=== PATIENT | male | born 1990 | race African-American/Black ===

== ENCOUNTER 2020-05-07 07:13 | Inpatient (IN) | payer OTHER ==
[~2020-05-07] VITALS: Ht 177.8 cm; Wt 65.7 kg
[2020-05-07 07:35] VITALS: BP 128/75
--- NOTE | 2020-05-07 07:35 | NUR ---
ED Nurse Note: Pt walked into ED from home complaining of lower abdominal pain n/v since yesterday 11pm. Pt states he vomited at least 10 times emesis clear in color, pt states having chills, denies fever. Pt is alert oriented x4, breathing even and unlabored.
--- NOTE | 2020-05-07 07:42 | Emergency Room Report ---
History of Present Illness General Chief Complaint: Abdominal Pain Source: Patient Present Illness HPI Patient is a 29-year-old male presents after increased abdominal pain. Reports having diffuse lower abdominal pain associate with nausea and vomiting. Denies any diarrhea. Had recently traveled from [place]. Denies any fever. Reports having some chills. Reported having elevated blood sugar last night. Denies any definite known coronavirus exposure. Had not been having any Allergies: Coded Allergies: No Known Allergies (Unverified , 05/07/20) COVID-19 Screening Contact w/high risk pt: No Experienced COVID-19 symptoms?: No COVID-19 Testing performed DIRECT CARE STAFFER: No Patient History Reviewed Nursing Documentation: PMH: Agreed; PSxH: Agreed Nursing Documentation-PMH Past Medical History: No History, Except For Hx Diabetes: Yes - TYPE 1 Physical Exam Vital Signs Date Time Temp Pulse Resp B/P (MAP) Pulse Ox O2 Delivery O2 Flow Rate FiO2 05/07/20 07:29 98.1 100 16 124/79 (94) 98 Room Air Sp02 EP Interpretation: reviewed, normal General Appearance: normal inspection, well appearing, no apparent distress, alert, GCS 15, non-toxic Head: atraumatic ENT: normal ENT inspection, hearing grossly normal, normal voice Neck: normal inspection, full range of motion, supple, no bony tend Respiratory: normal inspection, lungs clear, normal breath sounds, no respiratory distress, no retraction, no wheezing Cardiovascular #1: regular rate, rhythm, no edema Gastrointestinal: normal inspection, normal bowel sounds, non tender, soft, no guarding, no hernia Genitourinary: no CVA tenderness Musculoskeletal: normal inspection, back normal, normal range of motion Neurologic: alert, motor strength/tone normal, commercial estimator III-XII nml as tested, oriented x3, responsive, speech normal, normal inspection Psychiatric: normal inspection, judgement/insight normal, mood/affect normal Procedures Critical Care Time Critical Care Time Patient had a critical medical condition which untreated could potentially result in life or limb threatening injury. Total critical care time excluding procedures approximately 45 minutes. Medical Decision Making Diagnostic Impression: Primary Impression: Diabetic acidosis, type I Additional Impressions: Dehydration Acute prerenal azotemia ER Course Patient presented for abdominal pain and vomiting. Differential diagnosis include was not limited to diabetic ketoacidosis, coronavirus infection, appendicitis, gastroenteritis, marijuana hyperemesis among others. Because of complexity of patient's case laboratory tests and imaging studies were ordered. Patient was noted to have multiple episodes of emesis as well as elevated blood sugar. Patient reports being compliant with his insulin although he did reportedly delay a dose yesterday. He had recently traveled from [place] and does not have any definite coronavirus exposure. Coronavirus testing was negative. Patient started on IV fluids as well as IV insulin and insulin drip. Laboratory testing showed elevated anion gap as well as urine ketones consistent with diabetic ketoacidosis. Patient's bicarb was noted to be normal. Patient given antiemetics. He was started on IV antibiotics due to elevated white blood count with some slight urinary infection. There is no definite source for infection noted. CT of the abdomen pelvis was ordered noncontrast due to patient's elevated BUN/creatinine. CT imaging showed questionable gastritis otherwise negative see radiology report for full details. Dr. Que Sena was contacted for inpatient management due to [facility] physician for [facility]. Labs Test 05/07/20 07:45 05/07/20 08:00 05/07/20 09:19 White Blood Count 22.5 K/UL (4.8-10.8) Red Blood Count 5.98 M/UL (4.70-6.10) Hemoglobin 17.7 G/DL (14.2-18.0) Hematocrit 51.7 % (42.0-52.0) Mean Corpuscular Volume 86 FL (80-99) Mean Corpuscular Hemoglobin 29.6 PG (27.0-31.0) Mean Corpuscular Hemoglobin Concent 34.2 G/DL (32.0-36.0) Red Cell Distribution Width 11.9 % (11.6-14.8) Platelet Count 370 K/UL (150-450) Mean Platelet Volume 7.0 FL (6.5-10.1) Neutrophils (%) (Auto) % (45.0-75.0) Lymphocytes (%) (Auto) % (20.0-45.0) Monocytes (%) (Auto) % (1.0-10.0) Eosinophils (%) (Auto) % (0.0-3.0) Basophils (%) (Auto) % (0.0-2.0) Differential Total Cells Counted 100 Neutrophils % (Manual) 88 % (45-75) Lymphocytes % (Manual) 9 % (20-45) Monocytes % (Manual) 3 % (1-10) Eosinophils % (Manual) 0 % (0-3) Basophils % (Manual) 0 % (0-2) Band Neutrophils 0 % (0-8) Platelet Estimate Adequate Platelet Morphology Normal Red Blood Cell Morphology Normal Urine Color Yellow Urine Appearance Clear Urine pH 5 (4.5-8.0) Urine Specific [place] 1.020 (1.005-1.035) Urine Protein 1+ (NEGATIVE) Urine Glucose (UA) 4+ (NEGATIVE) Urine Ketones 3+ (NEGATIVE) Urine Blood Negative (NEGATIVE) Urine Nitrite Negative (NEGATIVE) Urine Bilirubin 1+ (NEGATIVE) Urine Ictotest Negative (NEGATIVE) Urine Urobilinogen Normal MG/DL (0.0-1.0) Urine Leukocyte Esterase 2+ (NEGATIVE) Urine RBC 0 /HPF (0 - 0) Urine WBC 5-10 /HPF (0 - 0) Urine Squamous Epithelial Cells None /LPF (NONE/OCC) Urine Bacteria Few /HPF (NONE) Sodium Level 133 MMOL/L (136-145) Potassium Level 4.6 MMOL/L (3.5-5.1) Chloride Level 91 MMOL/L (98-107) Carbon Dioxide Level 25 MMOL/L (21-32) Anion Gap 18 mmol/L (5-15) Blood Urea Nitrogen 47 mg/dL (7-18) Creatinine 2.4 MG/DL (0.55-1.30) Estimat Glomerular Filtration Rate 39.3 mL/min (>60) Glucose Level 474 MG/DL (74-106) Calcium Level 9.7 MG/DL (8.5-10.1) Total Bilirubin 0.8 MG/DL (0.2-1.0) Aspartate Amino Transf (AST/SGOT) 9 U/L (15-37) Alanine Aminotransferase (ALT/SGPT) 33 U/L (12-78) Alkaline Phosphatase 127 U/L (46-116) Troponin I 0.000 ng/mL (0.000-0.056) Total Protein 9.4 G/DL (6.4-8.2) Albumin 4.7 G/DL (3.4-5.0) Globulin 4.7 g/dL Albumin/Globulin Ratio 1.0 (1.0-2.7) Lipase 50 U/L (73-393) Urine Opiates Screen Negative (NEGATIVE) Urine Barbiturates Screen Negative (NEGATIVE) Phencyclidine (PCP) Screen Negative (NEGATIVE) Urine Amphetamines Screen Negative (NEGATIVE) Urine Benzodiazepines Screen Negative (NEGATIVE) Urine Cocaine Screen Negative (NEGATIVE) Urine Marijuana (THC) Screen Positive (NEGATIVE) Acetone Level Positive-small (NEGATIVE) Magnesium Level 2.1 MG/DL (1.8-2.4) Serum Alcohol < 3 mg/dL POC Whole Blood Glucose 401 MG/DL (74-106) EKG Diagnostic Results Rate: normal Rhythm: NSR ST Segments: other - j point elevation Last Vital Signs Date Time Temp Pulse Resp B/P (MAP) Pulse Ox O2 Delivery O2 Flow Rate FiO2 05/07/20 07:29 98.1 100 16 124/79 (94) 98 Room Air Status: improved Disposition: ADMITTED INPATIENT Condition: Critical Darren Paris MD May 07, 2020 07:42
[2020-05-07] MEDS ORDERED: Morphine Sulfate 2mg/ml Inj(IV/IM USE ONLY) IVP ONE (07:45)
--- NOTE | 2020-05-07 07:45 | NUR ---
ED Nurse Note: urine, blood, and covid swab sent to lab
[2020-05-07] MEDS ORDERED: Insulin Human Regular 100units/ml 3ml IV ONE (08:15)
[2020-05-07 08:20] LABS: APPEARANCE,URINE CLEAR; BILIRUBIN, URINE 1+ (NEGATIVE); GLUCOSE, URINE (UA) 4+ (NEGATIVE); KETONES,URINE 3+ (NEGATIVE); LEUKOCYTE ESTERASE ,URINE 2+ (NEGATIVE); NITRITE,URINE NEGATIVE (NEGATIVE); PH,URINE 5 (4.5-8.0); PROTEIN,URINE 1+ (NEGATIVE); UROBILINOGEN,URINE NORMAL MG/DL (0.0-1.0)
[2020-05-07] MEDS: LR 1000ml 1,000 ML IV SCH ×3 (08:20→17:45)
[2020-05-07 08:21] LABS: HEMATOCRIT 51.7 % (42.0-52.0); HEMOGLOBIN 17.7 G/DL (14.2-18.0); MEAN CORPUSCULAR VOLUME 86 FL (80-99); PLATELET COUNT 370 K/UL (150-450); RED BLOOD COUNT 5.98 M/UL (4.70-6.10); RED CELL DISTRIBUTION WIDTH 11.9 % (11.6-14.8)
[2020-05-07 08:23] LABS: COLOR,URINE YELLOW
[2020-05-07 08:25] LABS: ANION GAP 18 mmol/L (5-15); BLOOD UREA NITROGEN 47 mg/dL (7-18); CALCIUM 9.7 MG/DL (8.5-10.1); CARBON DIOXIDE 25 MMOL/L (21-32); CHLORIDE 91 MMOL/L (98-107); CREATININE 2.4 MG/DL (0.55-1.30); POTASSIUM 4.6 MMOL/L (3.5-5.1); SODIUM 133 MMOL/L (136-145)
[2020-05-07 08:29] LABS: WHITE BLOOD COUNT 22.5 K/UL (4.8-10.8)
[2020-05-07 08:30] LABS: ALANINE AMINOTRANSFERASE 33 U/L (12-78); ALBUMIN 4.7 G/DL (3.4-5.0); ALKALINE PHOSPHATASE 127 U/L (46-116); ASPARTATE AMINO TRANSFERASE 9 U/L (15-37); BILIRUBIN,TOTAL 0.8 MG/DL (0.2-1.0)
[2020-05-07] MEDS ORDERED: Insulin Reg 100 units Premix 100 ML IV SCH (08:30)
--- NOTE | 2020-05-07 08:41 | NUR ---
ED Nurse Note: insulin drip started
--- NOTE | 2020-05-07 08:57 | NUR ---
ED Nurse Note: Pt went down to CT via gurney accompanied by CT staff. Pt in stable condition.
--- NOTE | 2020-05-07 09:11 | NUR ---
ED Nurse Note: pt back from CT in stable condition.
[2020-05-07 09:30] VITALS: BP 121/73
[2020-05-07] MEDS ORDERED: cefTRIAXone 1 GM in NS 55 ML IVPB ONE (09:30)
--- NOTE | 2020-05-07 09:30 | NUR ---
HAND-OFF: Report given to ELDA Thomas. Endorsed plan of care.
--- NOTE | 2020-05-07 09:41 | Diagnostic Imaging Report ---
Indication: Diffuse lower abdominal pain associated with nausea and vomiting Technique: Spiral acquisitions obtained through the abdomen and pelvis. No oral contrast utilized, per emergency room physician request No IV contrast utilized, per referring physician request. Multiplanar reconstructions were generated. Total dose length product 166 mGycm. CTDIvol(s) 3 mGy. Dose reduction achieved using automated exposure control Comparison: None Findings: Lack of enteric contrast limits assessment of the GI tract. Normal appendix. No evidence of diverticulosis or diverticulitis. Equivocal slight prominence of the gastric rugal folds noted. The distal esophagus and duodenum are unremarkable. No small bowel distention. No free or loculated intraperitoneal gas or fluid is evident. Lack of IV contrast limits assessment of the solid organs. The liver, gallbladder, bile ducts, pancreas, spleen, adrenals, kidneys are all unremarkable. No pelvic mass or adenopathy. No retroperitoneal or mesenteric mass or adenopathy. The included lung bases are clear. The bones are unremarkable. Impression: Limited assessment of the GI tract, due to lack of enteric contrast administration Questionable gastric rugal fold prominence; if real, could indicate mild gastritis Otherwise negative The CT scanner at [facility] is accredited by the [employer] and the scans are performed using protocols designed to limit radiation exposure to as low as reasonably achievable to attain images of sufficient resolution adequate for diagnostic evaluation.
--- NOTE | 2020-05-07 09:57 | NUR ---
ED Nurse Note: pt on insulin drip that in the [place] is not titratable. Asked ED MD, who said to leave it at 6 u/hr, check BS every hour and to let him know the results. Per ED MD, we can titrate down based on the BS.
--- NOTE | 2020-05-07 10:10 | NUR ---
ED Nurse Note: Fingerstick BS 290. ED MD aware. Per MD, decreased insulin to 4 u/hr. Order noted and carried out. Pt is sleeping comforatbly in bed with no signs of distress. Vitals stablea as documented.
--- NOTE | 2020-05-07 10:15 | Diagnostic Imaging Report ---
Indication: Cough Technique: One view of the chest Comparison: none Findings: Lungs and pleural spaces are clear. Heart size is normal. Impression: No acute process
--- NOTE | 2020-05-07 10:43 | NUR ---
ED Nurse Note: Dr. Sena @ bedside
--- NOTE | 2020-05-07 10:46 | NUR ---
ED Nurse Note: per ED MD, stop insulin infusion now. Pt to be downgraded to SDU
[2020-05-07 11:26] VITALS: BP 110/53
--- NOTE | 2020-05-07 11:29 | NUR ---
ED Nurse Note: valentino figueroa sr. (father) [phone]. please inform father on room assignment
[2020-05-07 13:10] VITALS: BP 116/65
--- NOTE | 2020-05-07 14:30 | NUR ---
ED Nurse Note: Patient texting on bed with no distress. Calm and cooperative. Respirations are even and non labored.
[2020-05-07 15:11] VITALS: BP 123/81
--- NOTE | 2020-05-07 15:23 | NUR ---
ED Nurse Note: Report given to Keisha SCHROEDER of med surg unit.
--- NOTE | 2020-05-07 15:36 | NUR ---
ED Nurse Note: Pt transferred to med surg unit with all his belongings. Pt stable for transport.
--- NOTE | 2020-05-07 16:00 | NUR ---
NURSE NOTES: Patient is in bed awake and able to verbalize needs. Stable. Patient denies pain or SOB at this time. Patient oriented to room, call light, and unit. Patient instructed to use call light for assistance, verbalized understanding. Patient's skin is c/d/i. Patient denies nausea or vomiting. Patient is in bed in locked and lowest position with call light within reach. All safety measures provided, all needs met at this time. Will continue to monitor.
[2020-05-07] MEDS ORDERED: HUMALOG 75/255 UNIT1 SUBQ (16:04)
[2020-05-07] MEDS ORDERED: TOUJEO SOL300 UNIT/1 SQ (16:04)
[2020-05-07] MEDS ORDERED: Insulin Human Regular 100units/ml 3ml SUBQ SCH (16:30)
[2020-05-07] MEDS: NovoLOG Insulin Flexpen SUBQ SCH (17:13)
--- NOTE | 2020-05-07 19:30 | NUR ---
NURSE HAND-OFF: Important Events on Shift: blood sugar check, hydration Patient Status: stable Diet: ccho med Pending Orders: n/a Pending Results/Labs: bmp, mag, phos Pending MD notification:n/a Latest Vital Signs: Temperature 97.9 , Pulse 85 , B/P 119 /75 , Respiratory Rate 16 , O2 SAT 99 , Room Air, O2 Flow Rate . Vital Sign Comment: n/a Latest Bro Fall Score: 35 Fall Risk: Medium Risk Safety Measures: Call light Within Reach,Side Rails x2, Bed position Low and Locked. Fall Precautions: Report given to Houston SCHROEDER.
[2020-05-07 19:35] LABS: ANION GAP 9 mmol/L (5-15); BLOOD UREA NITROGEN 34 mg/dL (7-18); CALCIUM 8.9 MG/DL (8.5-10.1); CARBON DIOXIDE 27 MMOL/L (21-32); CHLORIDE 99 MMOL/L (98-107); CREATININE 1.6 MG/DL (0.55-1.30); SODIUM 135 MMOL/L (136-145)
[2020-05-07 19:38] LABS: PHOSPHORUS 1.9 MG/DL (2.5-4.9)
--- NOTE | 2020-05-07 19:45 | Consultation ---
DATE OF CONSULTATION: 05/07/2020 ENDOCRINOLOGY CONSULTATION REFERRING PHYSICIAN: Que Sena M.D. REASON FOR CONSULTATION: Diabetes management, DKA. HISTORY OF PRESENT ILLNESS: The patient is a 29-year-old male with history of type 1 diabetes diagnosed in 2008. He has not been to his doctor for many months because of the COVID. His last A1c was around 10. He is taking Lantus insulin 41 units at night, Humalog 6 units before each meal, plus additional sliding scale. The patient presented to the hospital with DKA nausea, vomiting, abdominal pain. On presentation, he had a WBC of 22, hemoglobin 17, hematocrit 51, platelets of 370. Sodium was 133 on presentation with a potassium of 4.6, chloride 91, bicarb 25, BUN 47, and creatinine of 2.4. Glucose is 474. Lipase was normal. The patient was started on IV fluid and insulin and admitted to the floor for observation. He is currently feeling better. He is able to tolerate his dinner. PAST MEDICAL HISTORY: Type 1 diabetes as above. PAST SURGICAL HISTORY: None. FAMILY HISTORY: Noncontributory. SOCIAL HISTORY: No smoking, alcohol, or drug use. REVIEW OF SYSTEMS: As per HPI. LABORATORY DATA: Labs discussed in the history of present illness. PHYSICAL EXAMINATION: GENERAL: He is awake and alert. VITAL SIGNS: Blood pressure is 119/74, pulse of 85, temperature of 97.9. HEENT: Pupils equal and reactive to light. Sclerae anicteric. NECK: No JVD. No thyromegaly. No bruit. LUNGS: Clear. HEART: Regular rate and rhythm. ABDOMEN: Positive bowel sounds. Soft. EXTREMITIES: No clubbing, cyanosis, or edema. DIAGNOSES: 1. DKA. 2. Type 1 diabetes. PLAN: 1. Levemir 42 units at bedtime. 2. NovoLog 8 units before each meal. 3. NovoLog sliding scale before meals and at bedtime. 4. Repeat stat lab, BMP, mag, and phos and call me with the result. Morning labs will also be assessed. I will follow the patient during hospital stay. Hopefully, he will be able to go home in the next day or two. Thank you, Dr. Sena, for the courtesy of this consultation. Xavier Tapia M.D. DR: MALI JOB#: [id number] CC:
[2020-05-07 20:00] VITALS: BP 127/72
[2020-05-07] MEDS: Heparin 5000 units/ml inj SUBQ SCH (20:12)
--- NOTE | 2020-05-07 20:58 | NUR ---
NURSE NOTES: Left message for Dr Tapia regarding patient's ordered STAT labs. Addendum: 05/08/20 at 0732 by Houston Hollins RN Spoke with Dr aTpia via telephone, no new orders
[2020-05-07] MEDS ORDERED: Levemir Flexpen SUBQ SCH (21:00)
--- NOTE | 2020-05-07 21:29 | History and Physical Report ---
DATE OF ADMISSION: 05/07/2020 HISTORY OF PRESENT ILLNESS: This is a 29-year-old insulin-dependent diabetic who came to the hospital with abdominal pain. He was seen and worked up, been found to have mild DKA. His bicarb was 25 and his initial glucose was 474. He had marked leukocytosis as well. The patient has received fluids and hydration. He has evidence of renal failure with a creatinine of 2.4 and hyponatremia. His urine positive for marijuana. He has mild leukocytosis as well as few pus cells. The patient reports he takes Lantus and Humalog at home. He takes 41 units of Lantus at night and takes 6 units of short-acting Humalog before each meal. PAST MEDICAL HISTORY: Diabetes mellitus. PAST SURGICAL HISTORY: None. ALLERGIES: None. REVIEW OF SYSTEMS: Denies any headaches, hematemesis, melena, hematochezia, night sweats, or weight loss. PHYSICAL EXAMINATION: GENERAL: Reveals a 29-year-old male. HEENT: Unremarkable. LUNGS: Clear breath sounds bilaterally. ABDOMEN: Soft. EXTREMITIES: There is no edema. NEUROLOGIC: Nonfocal. LABORATORY AND DIAGNOSTIC DATA: Lab testing discussed above. IMPRESSION: 1. Dehydration. 2. Acute kidney injury/ATN. 3. Mild DKA. 4. Hyperglycemia. DISCUSSION: Initiate insulin drip, will likely discontinue upon transfer to the medical floor. We will consult Nephrology and Endocrinology. 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 Check labs in the morning. Que Sena M.D. DR: Ninfa JOB#: [id number] CC:
[2020-05-08] VITALS: BP 122/64
[2020-05-08 05:41] LABS: BASOPHILS % (AUTO) 2.1 % (0.0-2.0); EOSINOPHILS % (AUTO) 0.2 % (0.0-3.0); HEMATOCRIT 42.5 % (42.0-52.0); HEMOGLOBIN 14.5 G/DL (14.2-18.0); LYMPHOCYTES % (AUTO) 17.5 % (20.0-45.0); MEAN CORPUSCULAR VOLUME 86 FL (80-99); MONOCYTES % (AUTO) 6.8 % (1.0-10.0); NEUTROPHILS % (AUTO) 73.4 % (45.0-75.0); PLATELET COUNT 308 K/UL (150-450); RED BLOOD COUNT 4.92 M/UL (4.70-6.10); RED CELL DISTRIBUTION WIDTH 11.6 % (11.6-14.8); WHITE BLOOD COUNT 12.2 K/UL (4.8-10.8)
[2020-05-08 06:01] LABS: ALANINE AMINOTRANSFERASE 29 U/L (12-78); ALBUMIN 3.5 G/DL (3.4-5.0); ALBUMIN/GLOBULIN RATIO 1.2 (1.0-2.7); ALKALINE PHOSPHATASE 79 U/L (46-116); ANION GAP 8 mmol/L (5-15); ASPARTATE AMINO TRANSFERASE 25 U/L (15-37); BILIRUBIN,TOTAL 0.8 MG/DL (0.2-1.0); BLOOD UREA NITROGEN 28 mg/dL (7-18); CALCIUM 8.9 MG/DL (8.5-10.1); CARBON DIOXIDE 30 MMOL/L (21-32); CHLORIDE 102 MMOL/L (98-107); CREATININE 1.3 MG/DL (0.55-1.30); POTASSIUM 3.7 MMOL/L (3.5-5.1); SODIUM 140 MMOL/L (136-145)
[2020-05-08] MEDS: NovoLOG Insulin Flexpen SUBQ SCH ×2 (06:13→11:50)
--- NOTE | 2020-05-08 06:32 | General Progress Note ---
Subjective Allergies: Coded Allergies: No Known Allergies (Unverified , 05/07/20) All Systems: reviewed and negative except above Subjective events noted hypoglycemia this morning DKA resolved Item Value Date Time Bedside Blood Glucose 52 mg/dl L 05/08/20 0613 Bedside Blood Glucose 230 mg/dl H 05/07/20 2114 Bedside Blood Glucose 343 mg/dl H 05/07/20 1713 Bedside Blood Glucose 166 mg/dl H 05/07/20 1352 Bedside Blood Glucose 290 mg/dl H 05/07/20 1010 Objective Last 24 Hour Vital Signs Date Time Temp Pulse Resp B/P (MAP) Pulse Ox O2 Delivery O2 Flow Rate FiO2 05/08/20 00:00 98.3 82 18 122/64 (83) 98 05/07/20 21:56 Room Air 05/07/20 20:00 98.7 85 20 127/72 (90) 98 05/07/20 15:36 97.9 85 16 119/75 99 Room Air 05/07/20 15:27 Room Air 05/07/20 15:11 98.2 76 15 123/81 100 Room Air 05/07/20 13:10 97.5 88 16 116/65 99 Room Air 05/07/20 11:26 97.5 62 17 110/53 100 Room Air 05/07/20 09:30 97.8 65 18 121/73 99 Room Air 05/07/20 08:47 98.1 05/07/20 07:35 88 22 Room Air 05/07/20 07:35 98.1 88 22 128/75 100 Room Air 05/07/20 07:29 98.1 100 16 124/79 (94) 98 Room Air Intake and Output 05/07/20 05/08/20 19:00 07:00 Intake Total 480 ml Balance 480 ml Intake Oral 480 ml # Voids 1 Laboratory Tests 05/07/20 07:45: White Blood Count 22.5*H, Red Blood Count 5.98, Hemoglobin 17.7, Hematocrit 51.7, Mean Corpuscular Volume 86, Mean Corpuscular Hemoglobin 29.6, Mean Corpuscular Hemoglobin Concent 34.2, Red Cell Distribution Width 11.9, Platelet Count 370, Mean Platelet Volume 7.0, Neutrophils (%) (Auto) , Lymphocytes (%) (Auto) , Monocytes (%) (Auto) , Eosinophils (%) (Auto) , Basophils (%) (Auto) , Differential Total Cells Counted 100, Neutrophils % (Manual) 88H, Lymphocytes % (Manual) 9L, Monocytes % (Manual) 3, Eosinophils % (Manual) 0, Basophils % (Manual) 0, Band Neutrophils 0, Platelet Estimate Adequate, Platelet Morphology Normal, Red Blood Cell Morphology Normal, Urine Color Yellow, Urine Appearance Clear, Urine pH 5, Urine Specific [place] 1.020, Urine Protein 1+H, Urine Glucose (UA) 4+H, Urine Ketones 3+H, Urine Blood Negative, Urine Nitrite Negative, Urine Bilirubin 1+H, Urine Ictotest Negative, Urine Urobilinogen Normal, Urine Leukocyte Esterase 2+H, Urine RBC 0, Urine WBC 5-10H, Urine Squamous Epithelial Cells None, Urine Bacteria Few, Sodium Level 133L, Potassium Level 4.6, Chloride Level 91L, Carbon Dioxide Level 25, Anion Gap 18H, Blood Urea Nitrogen 47H, Creatinine 2.4H, Estimat Glomerular Filtration Rate 39.3, Glucose Level 474H, Calcium Level 9.7, Total Bilirubin 0.8, Aspartate Amino Transf (AST/SGOT) 9L, Alanine Aminotransferase (ALT/SGPT) 33, Alkaline Phosphatase 127H, Troponin I 0.000, Total Protein 9.4H, Albumin 4.7, Globulin 4.7, Albumin/Globulin Ratio 1.0, Lipase 50L, Urine Opiates Screen Negative, Urine Barbiturates Screen Negative, Phencyclidine (PCP) Screen Negative, Urine Amphetamines Screen Negative, Urine Benzodiazepines Screen Negative, Urine Cocaine Screen Negative, Urine Marijuana (THC) Screen PositiveH, Acetone Level Positive-small 05/07/20 08:00: Magnesium Level 2.1, Serum Alcohol < 3 05/07/20 09:19: POC Whole Blood Glucose 401H 05/07/20 10:08: POC Whole Blood Glucose 290H 05/07/20 11:12: POC Whole Blood Glucose 172H 05/07/20 12:21: POC Whole Blood Glucose 151H 05/07/20 13:52: POC Whole Blood Glucose 166H 05/07/20 15:10: POC Whole Blood Glucose 201H 05/07/20 16:28: POC Whole Blood Glucose [Pending] 05/07/20 19:10: Sodium Level 135L, Potassium Level 4.0, Chloride Level 99, Carbon Dioxide Level 27, Anion Gap 9, Blood Urea Nitrogen 34H, Creatinine 1.6H, Estimat Glomerular Filtration Rate > 60, Glucose Level 305#H, Calcium Level 8.9, Phosphorus Level 1.9L, Magnesium Level 2.0 05/08/20 04:40: Sodium Level 140, Potassium Level 3.7, Chloride Level 102, Carbon Dioxide Level 30, Anion Gap 8, Blood Urea Nitrogen 28H, Creatinine 1.3, Estimat Glomerular Filtration Rate > 60, Glucose Level 44#L, Calcium Level 8.9, White Blood Count 12.2H, Red Blood Count 4.92, Hemoglobin 14.5, Hematocrit 42.5, Mean Corpuscular Volume 86, Mean Corpuscular Hemoglobin 29.5, Mean Corpuscular Hemoglobin Concent 34.2, Red Cell Distribution Width 11.6, Platelet Count 308, Mean Platelet Volume 6.6, Neutrophils (%) (Auto) 73.4, Lymphocytes (%) (Auto) 17.5L, Monocytes (%) (Auto) 6.8, Eosinophils (%) (Auto) 0.2, Basophils (%) (Auto) 2.1H, Total Bilirubin 0.8, Aspartate Amino Transf (AST/SGOT) 25, Alanine Aminotransferase (ALT/SGPT) 29, Alkaline Phosphatase 79, Total Protein 6.4#, Albumin 3.5, Globulin 2.9, Albumin/Globulin Ratio 1.2 Height (Feet): 5 Height (Inches): 10.00 Weight (Pounds): 149 General Appearance: no apparent distress Neck: normal alignment Cardiovascular: normal rate Respiratory/Chest: lungs clear Abdomen: normal bowel sounds Objective Current Medications Medications (Trade) Dose Ordered Sig/Nestor Route PRN Reason Start Time Stop Time Status Last Admin Dose Admin Dextrose (Dextrose 50%) 25 ml Q30M PRN IV Hypoglycemia 05/07/20 14:30 08/05/20 14:29 Dextrose (Dextrose 50%) 50 ml Q30M PRN IV Hypoglycemia 05/07/20 14:30 08/05/20 14:29 Heparin Sodium (Porcine) (Heparin 5000 units/ml) 5,000 units EVERY 12 HOURS SUBQ 05/07/20 21:00 06/21/20 20:59 05/07/20 20:12 Insulin Aspart (NovoLOG) 8 units NOVOTIAC SUBQ 05/07/20 16:50 08/05/20 16:49 05/07/20 17:13 Insulin Detemir (Levemir) 42 units BEDTIME SUBQ 05/07/20 21:00 08/05/20 20:59 05/07/20 20:12 Sodium Chloride 1,000 ml @ 100 mls/hr Q10H IVLG 05/07/20 17:00 06/06/20 16:59 05/08/20 03:22 Assessment/Plan Problem List: (1) Dehydration ICD Codes: E86.0 - Dehydration SNOMED: 21934970, 40761676 (2) Acute prerenal azotemia ICD Codes: R79.89 - Other specified abnormal findings of blood chemistry SNOMED: 080842686 (3) DKA, type 1 ICD Codes: E10.10 - Type 1 diabetes mellitus with ketoacidosis without coma SNOMED: 30993282, 22839809 Assessment/Plan: reduce Levemir to 30 units daily continue Novolog 8 units ac tid continue Novolog sliding scale ac hs hypoglycemia protocol in order stable for DC home today after hypoglycemia treated Xavier Tapia MD May 08, 2020 06:32
--- NOTE | 2020-05-08 07:30 | NUR ---
NURSE NOTES: Patient is in bed awake and able to verbalize needs. Stable. Denies pain or SOB. Patient instructed to use call light for assistance, verbalized understanding. IV patent and running IVF as ordered. All safety measures provided. Patient is in bed in locked and lowest position with call light within reach. All needs met at this time. WIll continue to monitor.
--- NOTE | 2020-05-08 07:32 | NUR ---
HAND-OFF: Report given to ELDA Blanchard.
[2020-05-08 08:00] VITALS: BP 116/67
--- NOTE | 2020-05-08 09:02 | Consultation ---
History of Present Illness General Chief Complaint: Abdominal Pain Reason for Consultation: VANESA, DKA Present Illness HPI Patient is a 29-year-old male presents after increased abdominal pain. Reports having diffuse lower abdominal pain associate with nausea and vomiting. Denies any diarrhea. Had recently traveled from [place]. Denies any fever. Reports having some chills. Reported having elevated blood sugar last night. Denies any definite known coronavirus exposur Allergies: Coded Allergies: No Known Allergies (Unverified , 05/07/20) Medication History Scheduled Insulin Aspart (Novolog Flexpen), 8 UNITS SUBQ BEFORE MEALS Insulin Glargine,Hum.rec.anlog (Toujeo Solostar), 300 UNIT SQ DAILY Discontinued Medications Insulin Glargine,Hum.rec.anlog (Toujeo Solostar), 300 UNIT SQ, (Reported) Discontinued Reason: Medication dose changed Insulin Human Lispro (Humalog), 0 SUBQ, (Reported) Discontinued Reason: Medication dose changed Patient History Healthcare decision maker Resuscitation status Advanced Directive on File Review of Systems All Other Systems: negative except mentioned in HPI Physical Exam General Appearance: no apparent distress, alert Lines, tubes and drains: peripheral HEENT: normocephalic, atraumatic Neck: non-tender, normal alignment Respiratory/Chest: chest wall non-tender, lungs clear, normal breath sounds Cardiovascular/Chest: normal peripheral pulses, normal rate, regular rhythm Abdomen: normal bowel sounds, non tender, soft Neurologic: alert, oriented x 3 Last 24 Hour Vital Signs Date Time Temp Pulse Resp B/P (MAP) Pulse Ox O2 Delivery O2 Flow Rate FiO2 05/08/20 08:34 Room Air 05/08/20 08:00 98.4 47 18 116/67 (83) 97 05/08/20 00:00 98.3 82 18 122/64 (83) 98 05/07/20 21:56 Room Air 05/07/20 20:00 98.7 85 20 127/72 (90) 98 05/07/20 15:36 97.9 85 16 119/75 99 Room Air 05/07/20 15:27 Room Air 05/07/20 15:11 98.2 76 15 123/81 100 Room Air 05/07/20 13:10 97.5 88 16 116/65 99 Room Air 05/07/20 11:26 97.5 62 17 110/53 100 Room Air 05/07/20 09:30 97.8 65 18 121/73 99 Room Air Intake and Output 05/07/20 05/08/20 19:00 07:00 Intake Total 480 ml Balance 480 ml Intake Oral 480 ml # Voids 1 Laboratory Tests Test 05/07/20 09:19 05/07/20 10:08 05/07/20 11:12 05/07/20 12:21 POC Whole Blood Glucose 401 MG/DL (74-106) H 290 MG/DL (74-106) H 172 MG/DL (74-106) H 151 MG/DL (74-106) H Test 05/07/20 13:52 05/07/20 15:10 05/07/20 16:28 05/07/20 19:10 POC Whole Blood Glucose 166 MG/DL (74-106) H 201 MG/DL (74-106) H Pending Sodium Level 135 MMOL/L (136-145) L Potassium Level 4.0 MMOL/L (3.5-5.1) Chloride Level 99 MMOL/L (98-107) Carbon Dioxide Level 27 MMOL/L (21-32) Anion Gap 9 mmol/L (5-15) Blood Urea Nitrogen 34 mg/dL (7-18) H Creatinine 1.6 MG/DL (0.55-1.30) H Estimat Glomerular Filtration Rate > 60 mL/min (>60) Glucose Level 305 MG/DL (74-106) #H Calcium Level 8.9 MG/DL (8.5-10.1) Phosphorus Level 1.9 MG/DL (2.5-4.9) L Magnesium Level 2.0 MG/DL (1.8-2.4) Test 05/08/20 04:40 White Blood Count 12.2 K/UL (4.8-10.8) H Red Blood Count 4.92 M/UL (4.70-6.10) Hemoglobin 14.5 G/DL (14.2-18.0) Hematocrit 42.5 % (42.0-52.0) Mean Corpuscular Volume 86 FL (80-99) Mean Corpuscular Hemoglobin 29.5 PG (27.0-31.0) Mean Corpuscular Hemoglobin Concent 34.2 G/DL (32.0-36.0) Red Cell Distribution Width 11.6 % (11.6-14.8) Platelet Count 308 K/UL (150-450) Mean Platelet Volume 6.6 FL (6.5-10.1) Neutrophils (%) (Auto) 73.4 % (45.0-75.0) Lymphocytes (%) (Auto) 17.5 % (20.0-45.0) L Monocytes (%) (Auto) 6.8 % (1.0-10.0) Eosinophils (%) (Auto) 0.2 % (0.0-3.0) Basophils (%) (Auto) 2.1 % (0.0-2.0) H Sodium Level 140 MMOL/L (136-145) Potassium Level 3.7 MMOL/L (3.5-5.1) Chloride Level 102 MMOL/L (98-107) Carbon Dioxide Level 30 MMOL/L (21-32) Anion Gap 8 mmol/L (5-15) Blood Urea Nitrogen 28 mg/dL (7-18) H Creatinine 1.3 MG/DL (0.55-1.30) Estimat Glomerular Filtration Rate > 60 mL/min (>60) Glucose Level 44 MG/DL (74-106) #L Calcium Level 8.9 MG/DL (8.5-10.1) Total Bilirubin 0.8 MG/DL (0.2-1.0) Aspartate Amino Transf (AST/SGOT) 25 U/L (15-37) Alanine Aminotransferase (ALT/SGPT) 29 U/L (12-78) Alkaline Phosphatase 79 U/L (46-116) Total Protein 6.4 G/DL (6.4-8.2) # Albumin 3.5 G/DL (3.4-5.0) Globulin 2.9 g/dL Albumin/Globulin Ratio 1.2 (1.0-2.7) Height (Feet): 5 Height (Inches): 10.00 Weight (Pounds): 149 Medications Current Medications Medications (Trade) Dose Ordered Sig/Nestor Route PRN Reason Start Time Stop Time Status Last Admin Dose Admin Dextrose (Dextrose 50%) 25 ml Q30M PRN IV Hypoglycemia 05/07/20 14:30 08/05/20 14:29 Dextrose (Dextrose 50%) 50 ml Q30M PRN IV Hypoglycemia 05/07/20 14:30 08/05/20 14:29 Heparin Sodium (Porcine) (Heparin 5000 units/ml) 5,000 units EVERY 12 HOURS SUBQ 05/07/20 21:00 06/21/20 20:59 05/07/20 20:12 Insulin Aspart (NovoLOG) 8 units NOVOTIAC SUBQ 05/07/20 16:50 08/05/20 16:49 05/07/20 17:13 Insulin Detemir (Levemir) 42 units BEDTIME SUBQ 05/07/20 21:00 08/05/20 20:59 05/07/20 20:12 Sodium Chloride 1,000 ml @ 100 mls/hr Q10H IVLG 05/07/20 17:00 06/06/20 16:59 05/08/20 03:22 Assessment/Plan Diagnosis Chaplin I: #VANESA #DKA #DM #HLD - IVF - endocrine eval - monitor UOP - monitor and replete electrolytes - replete lytes - avoid nephrotoxins - strict I&Os time spent 75 min Chata Gould M.D. May 08, 2020 09:02
[2020-05-08] MEDS: Heparin 5000 units/ml inj SUBQ SCH (09:15)
--- NOTE | 2020-05-08 10:46 | Pulmonology Progress Note ---
Subjective Interval Events: None new; mild hypoglycemioa this AM; repots poor appetite Constitutional: Reports: no symptoms HEENT: Repors: no symptoms Respiratory: Reports: no symptoms Cardiovascular: Reports: no symptoms Gastrointestinal/Abdominal: Reports: no symptoms Genitourinary: Reports: no symptoms Allergies: Coded Allergies: No Known Allergies (Unverified , 05/07/20) All Systems: reviewed and negative except above Objective Last 24 Hour Vital Signs Date Time Temp Pulse Resp B/P (MAP) Pulse Ox O2 Delivery O2 Flow Rate FiO2 05/08/20 08:34 Room Air 05/08/20 08:00 98.4 47 18 116/67 (83) 97 05/08/20 00:00 98.3 82 18 122/64 (83) 98 05/07/20 21:56 Room Air 05/07/20 20:00 98.7 85 20 127/72 (90) 98 05/07/20 15:36 97.9 85 16 119/75 99 Room Air 05/07/20 15:27 Room Air 05/07/20 15:11 98.2 76 15 123/81 100 Room Air 05/07/20 13:10 97.5 88 16 116/65 99 Room Air 05/07/20 11:26 97.5 62 17 110/53 100 Room Air Intake and Output 05/07/20 05/08/20 19:00 07:00 Intake Total 480 ml Balance 480 ml Intake Oral 480 ml # Voids 1 General Appearance: no acute distress HEENT: normocephalic Respiratory: chest wall non-tender, lungs clear Cardiovascular: normal peripheral pulses, normal rate Abdomen: normal bowel sounds Microbiology Date/Time Source Procedure Growth Status 05/07/20 07:45 Nasopharynx SARS-CoV-2 RdRp Gene Assay - Final Complete Laboratory Tests 05/07/20 11:12: POC Whole Blood Glucose 172H 05/07/20 12:21: POC Whole Blood Glucose 151H 05/07/20 13:52: POC Whole Blood Glucose 166H 05/07/20 15:10: POC Whole Blood Glucose 201H 05/07/20 16:28: POC Whole Blood Glucose [Pending] 05/07/20 19:10: Sodium Level 135L, Potassium Level 4.0, Chloride Level 99, Carbon Dioxide Level 27, Anion Gap 9, Blood Urea Nitrogen 34H, Creatinine 1.6H, Estimat Glomerular Filtration Rate > 60, Glucose Level 305#H, Calcium Level 8.9, Phosphorus Level 1.9L, Magnesium Level 2.0 05/08/20 04:40: Sodium Level 140, Potassium Level 3.7, Chloride Level 102, Carbon Dioxide Level 30, Anion Gap 8, Blood Urea Nitrogen 28H, Creatinine 1.3, Estimat Glomerular Filtration Rate > 60, Glucose Level 44#L, Calcium Level 8.9, White Blood Count 12.2H, Red Blood Count 4.92, Hemoglobin 14.5, Hematocrit 42.5, Mean Corpuscular Volume 86, Mean Corpuscular Hemoglobin 29.5, Mean Corpuscular Hemoglobin Concent 34.2, Red Cell Distribution Width 11.6, Platelet Count 308, Mean Platelet Vol ume 6.6, Neutrophils (%) (Auto) 73.4, Lymphocytes (%) (Auto) 17.5L, Monocytes (%) (Auto) 6.8, Eosinophils (%) (Auto) 0.2, Basophils (%) (Auto) 2.1H, Total Bilirubin 0.8, Aspartate Amino Transf (AST/SGOT) 25, Alanine Aminotransferase (ALT/SGPT) 29, Alkaline Phosphatase 79, Total Protein 6.4#, Albumin 3.5, Globulin 2.9, Albumin/Globulin Ratio 1.2 Current Medications Medications (Trade) Dose Ordered Sig/Nestor Route PRN Reason Start Time Stop Time Status Last Admin Dose Admin Dextrose (Dextrose 50%) 25 ml Q30M PRN IV Hypoglycemia 05/07/20 14:30 08/05/20 14:29 Dextrose (Dextrose 50%) 50 ml Q30M PRN IV Hypoglycemia 05/07/20 14:30 08/05/20 14:29 Heparin Sodium (Porcine) (Heparin 5000 units/ml) 5,000 units EVERY 12 HOURS SUBQ 05/07/20 21:00 06/21/20 20:59 05/08/20 09:15 Insulin Aspart (NovoLOG) 8 units NOVOTIAC SUBQ 05/07/20 16:50 08/05/20 16:49 05/07/20 17:13 Insulin Detemir (Levemir) 42 units BEDTIME SUBQ 05/07/20 21:00 08/05/20 20:59 05/07/20 20:12 Sodium Chloride 1,000 ml @ 100 mls/hr Q10H IVLG 05/07/20 17:00 06/06/20 16:59 05/08/20 03:22 Assessment/Plan Assessment/Plan IMPRESSION: 1. Dehydration. 2. Acute kidney injury/ATN. 3. Mild DKA. 4. Hyperglycemia; resolved; brief hypoglycemia this AM. DISCUSSION: Labs reviewed; much better Poor appetite otherwise he is feeling well WIll dc home Decrease Toujeo to 35 units q pm Novolog 8U subcut AC meals Dc home Guillermo Lucas Omar Syed MD May 08, 2020 10:46
[2020-05-08] MEDS ORDERED: NOVOLOG100 UNITS1 SUBQ (10:49)
[2020-05-08] MEDS ORDERED: TOUJEO SOL300 UNIT/1 SQ (10:49)
[2020-05-08 12:00] VITALS: BP 117/74
--- NOTE | 2020-05-08 13:40 | NUR ---
NURSE NOTES: Patient discharged home as ordered. Stable. Patient was given thorough discharge instructions by Dr. Sena prior to discharge. Patient teaching reinforced by RN. All written discharge instructions given to patient. Prescription given to father Alfonso lux, father verbalized that he will fill prescription at home pharmacy. No IV access. All belongigns given to patient. Skin is c/d/i. All questions and concerns addressed by RN. Patient assisted downstairs by staff without incident.
--- NOTE | 2020-05-08 16:41 | NUR ---
CASE MANAGEMENT: INITIAL REVIEW 29YR OLD MALE FROM HOME CC:ABDOMINAL PAIN SI:DIABETIC KETOACIDOSIS 98.0 100 16 124/79 98% ON RA WBC 22.5 NA+ 133 BUN/CREAT 47/2.4 BG 474 LIPASE 50 + MARIJUANA IS:IV ZOFRAN X1 IV MORPHINE SULFATE X1 IV NOVOLIN R X1 IV INSULIN HUMAN/NS X1 IVF NS BOLUS X2 IV ROCEPHIN X1 CHEST X-RAY- No acute process CT Abdomen Pelvis WO Contrast-Limited assessment of the GI tract, due to lack of enteric contrast administration Questionable gastric rugal fold prominence; if real, could indicate mild gastritis. Otherwise negative \: 3E MED SURG UNIT DCP: HOME WHEN STABLE PLAN: CONT BS CONTROL IV HYDRATION
--- NOTE | 2020-05-09 12:40 | Discharge Summary ---
Discharge Summary Discharge Summary _ DATE OF ADMISSION: 05/07/2020 DATE OF DISCHARGE: 05/08/2020 DISCHARGED BY: Dr. Sena REASON FOR ADMISSION: 29 years old male with past medical history of diabetes mellitus type1, presented with diffuse lower abdominal pain associated with nausea and vomiting. No diarrhea. No fever, but reported some chills. Upon evaluation vital signs were stable. Laboratory work-up revealed leukocytosis WBC 22.5, stable H&H and platelet count . Chemistry showed glucose 474. Anion gap 18. Sodium 133, chloride 91. BUN 47, creatinine 2.4. Troponin was negative. Stable LFT. Rapid COVID-19 was negative. Urine toxicology screen was positive for marijuana. UA with + 1 protein, +4 glucose, +3 ketones, no evidence of UTI. Chest x-ray revealed no acute cardiopulmonary pathology. CT of the abdomen and pelvis showed possible mild gastritis , otherwise negative. In emergency department patient r started on insulin drip , received analgesic , antiemetic, IV hydration , empiric antibiotic and admitted for further management. Patient admitted for o DKA , dehydration , acute kidney injury CONSULTANTS: [employer] Or Yarn Dr. Tapia Glassie Dr. Gould [facility]SE: Patient admitted to ICU. Patient was on insulin drip as per protocol and IV fluids. When anion gap closed , insulin drip was discontinued . Patient started on long-acting Levemir, short acting pre-meal insulin and sliding scale of insulin as needed. Blood sugar readings were closely monitored , and insulin doses adjusted . Diabetic diet and diabetic teaching provided. Blood sugar improved. Hypoglycemia protocol was in order. Long-acting insulin dose was decreased to avoid hypoglycemia prior to discharge. Renal parameters and electrolytes were closely monitored, electrolytes corrected as needed , and nephrotoxic's were avoided. Prior to discharge BUN from 47 down to 28, and creatinine from 2.4 down to 1.3. Acute kidney injury was likely due to dehydration and resolved. Sodium 140 , chloride 102. Stable other electrolytes al Leukocytosis trended down the next day to 12.2. No fevers. No evidence of infection. Leukocytosis was most likely reactive due to DKA. Patient clinically stabilized and was ready for discharge home. Due to rapid and unexpected improvement in patient condition , patient was discharged in 1 day. FINAL DIAGNOSES: DKA -resolved Acute kidney injury-resolved Dehydration Hyperglycemia DISCHARGE MEDICATIONS: See Medication Reconciliation list. DISCHARGE INSTRUCTIONS: Patient was discharged home. Follow-up with a primary care provider in 1 week. Patient was encouraged compliance with medication regimen and diabetic diet I have been assigned to dictate discharge summary for this account. I was not involved in the patient's management. Marisol Dwyer NP May 09, 2020 12:40
--- NOTE | 2020-05-09 15:36 | NUR ---
INSURANCE DC SUMMARY FAXED TO [facility] [phone] PH [phone] EXT [id number]
== END 2020-05-08 14:12 | disposition home or self-care (01) | DRG 637 ==
LOC: EMR 07:40 → EDBEDREQSVC 09:07 → 3E 09:31 → EDBEDREQ 10:26 → EDBEDREQSVC 15:06 → EDBEDREQ 15:06
DX: E10.10 Type 1 diabetes mellitus with ketoacidosis without coma (principal); N17.0 Acute kidney failure with tubular necrosis; E86.0 Dehydration
CPT/HCPCS: 36415; 71045; 74176; 80048; 80053; 80307; 81003; 82009; 82962; 83690; 83735; 84100; 84484; 85007; 85025; 86850; 86900; 86901; 93005; 96365; 96366; 96368; 96375; 99291; G0480; J1815; J2405; J7030; S5561; U0002